=== PATIENT | female | born 1980 | race Caucasian/White ===

== ENCOUNTER 2022-01-07 02:10 | Emergency (ER) | payer OTHER, SELFPAY ==
--- NOTE | ~2022-01-07 | XR_ITS ---
EXAMINATION: XR ANKLE, RIGHT CLINICAL INFORMATION: Fall COMPARISON: None TECHNIQUE: AP, lateral, and mortise views of the right ankle. FINDINGS: There is a mildly displaced transverse fracture of the medial malleolus. Oblique fracture of the distal fibula is also noted, with inferior aspect of the fracture line at the level of the tibial plafond and mild lateral displacement of the distal fragment. Surrounding soft tissue swelling is present. Articular alignment across the ankle appears grossly preserved. Small plantar calcaneal spur is present. Mild degenerative change noted along the anterior navicular. XR/XR ankle RT min 3V IMPRESSION: Mildly displaced fractures of the medial malleolus and distal fibula, with surrounding soft tissue swelling.
[2022-01-07 02:18] VITALS: BP 120/75; PULSE 112; RESP 18; TEMP 37.4; O2SAT 98; BMI 29.8
--- NOTE | 2022-01-07 02:25 | PC.NURSE ---
Assumed care of pt RT ankle swollen Pt able to move with with minimal pain Pulses palpable and equal bilaterally
--- NOTE | 2022-01-07 02:49 | ED_ITS ---
HPI - Extremity Injury (Lower) General Chief Complaint: Extremity Injury, Lower Stated Complaint: FALL Time Seen by Provider: 01/07/22 02:20 Source: patient Mode of arrival: ambulatory Limitations: no limitations History of Present Illness HPI Narrative: 41-year-old female came in for evaluation of right ankle injury. Patient tripped and twisted her right ankle in the dark, able to ambulate on the right ankle with pain. No fall, no head injury. Related Data Allergies Allergy/AdvReac Type Severity Reaction Status Date / Time No Known Allergies Allergy Verified 01/07/22 02:25 Review of Systems Review of Systems: All other systems are reviewed and are negative Constitutional: Reports as per HPI and Reports no additional constitutional complaints Eyes: Reports as per HPI and Reports no additional eye complaints Reports system reviewed and no additional complaints, except as documented Cardiovascular: Reports as per HPI and Reports no additional cardiovascular complaints Respiratory: Reports as per HPI and Reports no additional respiratory complaints Gastrointestinal: Reports as per HPI and Reports no additional gastrointestinal complaints Genitourinary: Reports no additional female genitourinary complaints Musculoskeletal: Reports no additional musculoskeletal complaints Skin/Breast: Reports system reviewed and no additional complaints, except as docu Psychiatric: Reports no additional psychiatric complaints Endocrine: Reports no additional endocrine complaints Hematologic/Lymphatic: Reports no additional hematologic/lymphatic complaints Allergic/Immunologic: Reports no additional allergic/immunologic complaints Reports system reviewed and no additional complaints, except as documented and Reports Abnormal speech present [facility] Social History Social History Advance Directives: No Advance Directives Information Provided: Yes Physical Exam Vital Signs: Vital Signs: Last Vital Signs Temp 99.3 F 01/07/22 02:18 Pulse 112 H 01/07/22 02:18 Resp 18 01/07/22 02:18 BP 120/75 01/07/22 02:18 Pulse Ox 98 01/07/22 02:18 BMI result Body Mass Index 29.8 Vital signs have been reviewed as appeared to be correct. Blood pressure normal. Heart rate elevated. Respiration rate normal. Temperature normal. Oxygen saturation normal. Appearance: Alert. Oriented X3. No acute distress. Head: Normal external exam. Normocephalic. Atraumatic. No Melo signs noted. N o raccoon eyes noted Eyes: PERRLA. EOMI. Conjunctiva and sclera normal. Eyelids normal. ENT: TM's Normal. Pharynx normal. Uvula midline. Moist mucous membranes. No trismus noted. No drooling noted. No muffled voice noted. Neck: Normal inspection. Neck supple. FROM. No adenopathy. Thyroid Normal. No meningeal signs. No neck mass noted. CVS: Normal heart rate and rhythm. Heart sound normal. No murmurs noted. Pulses normal throughout. Respiratory: No respiratory distress. Painless inspiration. Breath sounds normal. No wheezes/rales/rhonchi noted. Chest nontender. No accessory muscle usage noted or decreased air movement noted. Abdomen: Soft and nontender. Bowel sounds normal in all 4 quadrants. No distention noted. No organomegaly noted. No visible injury noted. Back: No CVA tenderness. Full range of motion noted. Skin: Skin warm and dry. Normal skin color. Normal skin turgor. No rashes/lesions/lacerations noted. Extremities: Right ankle mild swelling, no deformity, no step-off. Neuro: Oriented X 3. Cranial nerve exam: II-XII are grossly intact No motor deficit. No sensory deficit. Reflexes normal. Course Course Course Narrative: Assessment and plan 41-year-old female tripped and twisted her right ankle causing by malleolar fracture, patient is coming from [place] going back home tomorrow was instructed to follow-up with her primary doctor regarding fracture of her right ankle with mild mechanism, patient also had left ankle fracture 8 months ago. Posterior/sugar-tong splint was applied/crutches/ice/no weight-bearing/NSAIDs for pain p.r.n./follow-up with orthopedic/follow-up with PCP. MDM - Extremity Injury (Lower) Imaging Data Right ankle x-ray: Attestation: I personally reviewed and interpreted this imaging study as follows: Radiologist's impression: Mildly displaced fractures of the medial malleolus and distal fibula, with surrounding soft tissue swelling. Discharge Plan Discharge Clinical Impression: Ankle fracture Patient Disposition: Home, Self-Care Instructions: Ankle Fracture (ED) Additional Instructions: Follow-up with your orthopedic doctor in 1 week. Referrals: Physician,Unknown J [Primary Care Provider] -
--- NOTE | 2022-01-07 03:28 | PC.NURSE ---
Right short leg posterior and sugar tong splint applied as ordered by Dr Garcia. at bedside to assess placement of splint.
== END 2022-01-07 03:51 | disposition home or self-care (01) ==
PROVIDERS: Emergency Provider Emergency Medicine
DX: S82.891A Other fracture of right lower leg, initial encounter for closed fracture (principal); W01.0XXA Fall on same level from slipping, tripping and stumbling without subsequent striking against object, initial encounter; Y93.9 Activity, unspecified; Y92.9 Unspecified place or not applicable; Y99.9 Unspecified external cause status
CPT/HCPCS: 73610; 99283